=== PATIENT | male | born 1995 | race Caucasian/White ===

== ENCOUNTER 2017-11-13 22:20 | Emergency (ER) | payer BC, OTHER ==
[~2017-11-13] VITALS: Ht 170.2 cm; Wt 99.7 kg
[~2017-11-13 22:20] MED LIST: AMOX1TAB43 PO
[2017-11-13 22:32] VITALS: TEMP 37.1; Ht 170.2 cm; Wt 99.7 kg
[2017-11-14] MEDS ORDERED: HYDROCORTISONE HC 2.5% CRM 30GM TUBE EXT ONE (00:30)
[2017-11-14 00:36] VITALS: BP 138/81; PULSE 74; O2SAT 97
--- NOTE | 2017-11-14 05:54 | EMERGENCY ROOM VISIT NOTE ---
History First contact with patient: 23:40 Chief Complaint: OTHER COMPLAINT Stated Complaint: BLOOD CLOT History of Present Illness The patient is a 21 year old male who presents to the Emergency Room with complaints of posed to his rectum for the past 4 days. Patient thinks it might be a hemorrhoid. He claims of pain with defecation. He has not tried anything. Patient denies blood or black in the stool, abdominal pain, chest pain, dyspnea, fever, chills. Review of Systems A 6 system review of systems was completed with positives and pertinent negatives listed in the HPI. Past Medical/Surgical History None Social History Smoking Status: Never Smoker Alcohol Use: occasionally Drug Use: none Marital Status: in relationship Current/Historical Medications Scheduled Amoxicillin & Pot Clavulanate (Amoxicillin/Clavulanate P), 1 TAB PO BID Physical Exam Vital Signs Date Time Temp Pulse Resp B/P (MAP) Pulse Ox O2 Delivery O2 Flow Rate FiO2 11/14/17 00:36 74 18 138/81 97 11/13/17 22:32 37.1 90 18 135/86 98 Room Air Physical Exam VITALS: Vitals are noted on the nurse's note and reviewed by myself. Vital signs stable. GENERAL: Pleasant male, in no acute distress, nondiaphoretic, well-developed well-nourished. SKIN: Capillary reflex less than 2 seconds. HEENT: Normocephalic. PERRLA. EOMI. Nares patent. Mucous membranes moist. ABDOMEN: Positive bowel sounds x 4. Normal tympanic percussion. Soft, nontender, without masses or organomegaly. Mauro sign negative. No guarding or rebound tenderness. Rectal exam: Nonthrombosed hemorrhoid at 7:00. No fissures or tears. MUSCULOSKELETAL: No gross musculoskeletal defects. NEURO: Patient was alert and oriented to person place and time. No focal neurological deficits. Medical Decision & Procedures Medications Administered Medications (Trade) Dose Ordered Sig/Melecio Route Start Time Stop Time Status Last Admin Dose Admin Hydrocortisone (Proctozone Hc 2.5% Crm) 1 appln NOW ONCE EXT 11/14/17 00:30 11/14/17 00:31 DC 11/14/17 00:35 1 APPLN ED Course Prior records reviewed and summarized as above. Triage Nursing notes reviewed. Additional history obtained from girlfriend. The patient's history was concerning for rectal discomfort Differential diagnosis: Etiologies such as hemorrhoids, fissure, tear, cellulitis, abscess, as well as others were entertained.. Physical examination: The physical examination was consistent with hemorrhoid ER treatment provided: Anusol On reassessment the patient felt better. Diagnostics interpreted by me: Deferred This appears to be isolated hemorrhage. Patient was advised to avoid straining when he goes the bathroom and use Anusol cream as directed. He is advised to follow-up with surgery for definitive care for his hemorrhoids or here in the ER sooner for severe pain, fevers, vomiting, worsening signs or symptoms or as needed. By the evaluation outlined above emergent etiologies such as abscess, fissure, tear, as well as others were deemed relatively unlikely. The pt informed about the findings as listed above. All questions were answered and pleased with the treatment. Return instructions were outlined and the patient was discharged in stable condition. Outpatient prescription management: Anusol cream Referral: The patient was referred back to surgery and/or primary care physician for follow-up in 2 to 3 days for a recheck of the current condition. Medical Decision As above Medication Reconcilliation Current Medication List: was personally reviewed by me Blood Pressure Screening Patient's blood pressure: Normal blood pressure Impression Primary Impression: Acute hemorrhoid Departure Information Dispostion Home / Self-Care Condition GOOD Referrals Cleveland Biswas MD Forms WORK / SCHOOL INSTRUCTIONS, HOME CARE DOCUMENTATION FORM, IMPORTANT VISIT INFORMATION Patient Instructions My [facility], ED Hemorrhoids Additional Instructions Use Anusol cream 2-3 times a day to the affected area. Avoid straining when he go the bathroom. Increase your fluid and fiber intake. Call surgery for follow-up for treatment for your hemorrhoids. Follow-up family here in 2-3 days. Return to ER sooner for chest pain, abdominal pain, blood or black in the stool , worsening signs or symptoms or as needed.
== END 2017-11-14 00:38 | disposition home or self-care (01) ==
LOC: C.EDB 22:22
DX: K64.4 Residual hemorrhoidal skin tags (principal)